=== PATIENT | female | born 1975 ===

== ENCOUNTER 2016-10-09 09:23 | Outpatient (CLI) | payer OTHER ==
--- NOTE | 2016-10-09 10:56 | Mammography Report ---
Screening mammogram: History: Bilateral breast reductions. Routine views are compared to her prior study in August 2014. There has been interval increase in chunky calcifications in the anterior right breast. Stable left breast calcifications. Mild architectural distortion bilaterally consistent with the reduction surgery. No new or suspicious findings. CAD used. Impression: Post reduction changes. Recommendation: Annual mammogram followup. BI-RADS CATEGORY: 1 = Negative ACR BI-RADS MAMMOGRAPHIC CODES: 0 = Needs additional imaging evaluation; 1 = Negative; 2 = Benign; 3 = Probably benign; 4 = Suspicious; 5 = Malignant; 6 = Known biopsy-proven malignancy COMMENT: 1. Dense breast tissue, i.e., adenosis, fibrocystic changes, etc., may obscure an underlying neoplasm. 2. Approximately 10% of cancers are not detected with mammography. 3. A negative mammography report should not delay biopsy if a clinically suspicious mass is present.
== END 2016-10-09 09:24 | disposition home or self-care (01) ==
LOC: SPVWC 09:23
PROVIDERS: ATTEND Obstetrics & Gynecology
DX: Z12.31 Encounter for screening mammogram for malignant neoplasm of breast (principal)
CPT/HCPCS: 77067; G0202